=== PATIENT | male | born 1960 | race American Indian/Alaskan Native ===

== ENCOUNTER 2017-12-30 09:27 | Outpatient (CLI) | payer OTHER | END 2017-12-30 09:28 | disposition home or self-care (01) | LOC: PF 09:27 | PROVIDERS: ATTEND Internal Medicine | DX: J45.909 Unspecified asthma, uncomplicated (principal); F41.9 Anxiety disorder, unspecified; B20 Human immunodeficiency virus [HIV] disease; J33.9 Nasal polyp, unspecified | CPT/HCPCS: 94010; 94729 ==

== ENCOUNTER 2018-01-13 10:23 | Outpatient (CLI) | payer OTHER | END 2018-01-13 10:24 | disposition home or self-care (01) | LOC: LAB 10:23 | PROVIDERS: ATTEND Internal Medicine | DX: B20 Human immunodeficiency virus [HIV] disease (principal); J45.909 Unspecified asthma, uncomplicated; F41.9 Anxiety disorder, unspecified; Z88.6 Allergy status to analgesic agent; J33.9 Nasal polyp, unspecified | CPT/HCPCS: 36415 ==